=== PATIENT | male | born 1995 ===

== ENCOUNTER 2018-08-06 02:04 | Emergency (ER) | payer SELFPAY ==
[2018-08-06 02:19] VITALS: PULSE 123; RESP 18; TEMP 99; O2SAT 98
[2018-08-06] MEDS ORDERED: Lidocaine/Epi 1% 1:100000 20 ML IJ ONE (02:24)
[2018-08-06 02:29] VITALS: BP 134/78
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
[2018-08-06] MEDS ORDERED: Lidocaine 1% w Epi 1:100,000 Inj ONE (03:30)
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
== END 2018-08-06 04:58 | disposition home or self-care (01) ==
LOC: H.ER 02:04
DX: S01.511A Laceration without foreign body of lip, initial encounter (principal); S00.83XA Contusion of other part of head, initial encounter; Y04.0XXA Assault by unarmed brawl or fight, initial encounter; Y92.89 Other specified places as the place of occurrence of the external cause